=== PATIENT | male | born 1985 | race Two or more races ===

== ENCOUNTER 2023-08-01 22:17 | Emergency (ER) | payer MEDICAID, OTHER ==
[~2023-08-01] VITALS: Ht 180.3 cm; Wt 65.9 kg
[2023-08-01 22:44] VITALS: BP 122/55
[2023-08-01 23:53] VITALS: PULSE 75; RESP 18; O2SAT 97
== END 2023-08-01 23:55 | disposition home or self-care (01) ==
LOC: ER 22:22
DX: E16.2 Hypoglycemia, unspecified (principal); F17.210 Nicotine dependence, cigarettes, uncomplicated; F12.10 Cannabis abuse, uncomplicated; F10.10 Alcohol abuse, uncomplicated; Z65.3 Problems related to other legal circumstances